=== PATIENT | female | born 1970 | race Caucasian/White ===

== ENCOUNTER 2022-08-14 14:48 | Outpatient (CLI) | payer OTHER, SELFPAY ==
--- NOTE | 2022-08-14 15:00 | CRLHL7_ITS ---
For Patients: As a result of the Century Cures Act, medical imaging exams and procedure reports are released immediately into your electronic medical record. You may view this report before your referring provider. If you have questions, please contact your health care provider. INDICATION: Dysfunctional uterine bleeding TECHNIQUE: Ultrasound pelvis transvaginal only COMPARISON: None FINDINGS: Uterus: 9.0 centimeter x 4.5 centimeter x 6.1 centimeter. Normal echotexture of the myometrium. No masses. Endometrium: The endometrium measures 10 millimeters in thickness. No sign of endometrial mass or fluid. Right ovary: 4.0 centimeter x 2.3 centimeter x 2.2 centimeter no ovarian or adnexal masses. Normal arterial and venous blood flow. Left ovary: 2.5 centimeter x 1.4 centimeters 1.7 centimeter. No ovarian or adnexal masses. Normal arterial and venous blood flow. Cul-de-sac: No significant free fluid. IMPRESSION: Unremarkable pelvic ultrasound. Dictated by Bandar Spain MD @ 08/14/2022 5:13:17 PM (Electronically Signed)
== END 2022-08-14 14:49 | disposition home or self-care (01) ==
PROVIDERS: PCP Family Medicine; Visit Provider Family Medicine
DX: N93.8 Other specified abnormal uterine and vaginal bleeding (principal)
CPT/HCPCS: 76830; 76856